=== PATIENT | female | born 1995 | race Caucasian/White ===

== ENCOUNTER 2017-11-15 23:13 | Emergency (ER) | payer MEDICAID ==
[~2017-11-15] VITALS: Ht 154.9 cm; Wt 52.2 kg
[~2017-11-15 23:13] MED LIST: DOX100 PO; PHE25I IV; ZOFI IM; ZOS3I IV
[2017-11-15 23:19] VITALS: Ht 154.9 cm; Wt 52.2 kg
[2017-11-16 00:26] VITALS: BP 190/100
== END 2017-11-16 00:26 | disposition short-term general hospital (02) ==
LOC: ED 23:13
DX: O42.92 Full-term premature rupture of membranes, unspecified as to length of time between rupture and onset of labor (principal); Z3A.37 37 weeks gestation of pregnancy; Z98.890 Other specified postprocedural states; Z88.8 Allergy status to other drugs, medicaments and biological substances